=== PATIENT | female | born 1970 | race Two or more races ===

== ENCOUNTER 2018-08-27 | Emergency (ER) | payer OTHER ==
[~2018-08-27] VITALS: Ht 154.9 cm; Wt 59.0 kg
--- NOTE | 2018-08-27 00:05 | NUR ---
TO BED 3 AMBULATORY STATES "I THINK I'M HAVING AN ALLERGIC REACTION". NO HIVES, NO ANGIOEDEMA NOTED. PT AAOX4 NO ACUTE DISTRESS NOTED, RESP EVEN AND UNLABORED. LUNG SOUNDS CLEAR BILATERALLY ON AUSCULTATION. PLACE PT ON CARDIAC MONITORING, CONTINUOUS POX, O2@2L/NC. ER MD AT BEDSIDE TO EVAL PT WITH ORDERS RECEIVED. WILL CARRY OUT ORDERS.
[2018-08-27] MEDS ORDERED: FAMOTIDINE/PF INJ 20 MG/2 ML VIAL IV ONE ×2 (00:10→00:30)
[2018-08-27] MEDS ORDERED: diphenhydrAMINE HCL 50 MG/ML VIAL ONE (00:10)
[2018-08-27] MEDS ORDERED: methylPREDNISolone SOD SUCC 125 MG/2ML VIAL ONE (00:26)
--- NOTE | 2018-08-27 00:27 | NUR ---
PT RESTING QUIETLY, NO ACUTE DISTRESS NOTED, RESP EVEN AND UNLABORED. WILL CONTINUE TO MONITOR PT CLOSELY.
[2018-08-27] MEDS ORDERED: methylPREDNISolone SOD SUCC 125 MG/2ML VIAL IV ONE (00:30)
[2018-08-27] MEDS ORDERED: diphenhydrAMINE HCL 50 MG/ML VIAL IV ONE (00:30)
[2018-08-27] MEDS ORDERED: IV NS 0.9% 1,000 ML BAG IV ONE ×2 (00:30→02:30)
--- NOTE | 2018-08-27 02:08 | NUR ---
PT ASLEEP, NO ACUTE DISTRESS NOTED, RESP EVEN AND UNLABORED. CALL LIGHT WITHIN REACH. WILL CONTINUE TO MONITOR PT CLOSELY.
[2018-08-27] MEDS ORDERED: ONDANSETRON HCL/PF 4 MG/2 ML VIAL IV ONE (02:30)
--- NOTE | 2018-08-27 03:36 | NUR ---
PT ASLEEP, NO ACUTE DISTRESS NOTED, RESP EVEN AND UNLABORED. CALL LIGHT WITHIN REACH. WILL CONTINUE TO MONITOR PT CLOSELY.
--- NOTE | 2018-08-27 05:01 | NUR ---
PT AAOX4 NO ACUTE DISTRESS NOTED, RESP EVEN AND UNLABORED. PT DENIES PAIN OR DISCOMFORT AT THIS TIME. WILL DISCHARGE PT.
[2018-08-27 05:04] VITALS: BP 117/72
--- NOTE | 2018-08-27 05:14 | NUR ---
IV removed. Catheter intact and site benign. Pressure and 4x4 applied to site. No bleeding noted. Patient discharged to home in stable condition. Written and verbal after care instructions given. Patient verbalizes understanding of instruction. ambulatory with a steady gait noted.
== END 2018-08-27 05:15 | disposition home or self-care (01) ==
LOC: ER
DX: T78.40XA Allergy, unspecified, initial encounter (principal); E86.0 Dehydration; F10.10 Alcohol abuse, uncomplicated; Z98.890 Other specified postprocedural states; X58.XXXA Exposure to other specified factors, initial encounter; Y90.9 Presence of alcohol in blood, level not specified
CPT/HCPCS: 96361; 96374; 96375; 99283; J1200; J2930; J3490; J7030 ×2

== ENCOUNTER 2023-10-22 12:38 | Emergency (ER) | payer OTHER ==
[~2023-10-22] VITALS: Ht 149.9 cm; Wt 49.9 kg
[2023-10-22] MEDS ORDERED: HYDROCODONE/APAP 5/325MG TABLET ONE (13:27)
[2023-10-22] MEDS ORDERED: IBUPROFEN 600 MG TABLET ONE (13:27)
[2023-10-22] MEDS: IBUPROFEN 600 MG TABLET PO ONE (13:30)
[2023-10-22] MEDS: HYDROCODONE/APAP 5/325MG TABLET PO ONE (13:31)
[2023-10-22] MEDS ORDERED: DIVALPROEX SODIUM 250 MG TABLET.DR PO ONE (14:30)
[2023-10-22] MEDS: DIVALPROEX SODIUM 250 MG TABLET.DR PO ONE (14:31)
[2023-10-22] MEDS ORDERED: IBUP-1955 PO (14:58)
[2023-10-22] MEDS ORDERED: HYDR-4209 PO (14:58)
[2023-10-22] MEDS ORDERED: ACET-2605 PO (14:58)
[2023-10-22] MEDS ORDERED: DOCU-141 PO (15:02)
[2023-10-22 15:11] VITALS: BP 110/70; TEMP 98.4; O2SAT 98
[2023-10-22] MEDS ORDERED: HYDR-3980 PO (17:08)
== END 2023-10-22 15:34 | disposition home or self-care (01) ==
LOC: ER 13:00
DX: S82.144A Nondisplaced bicondylar fracture of right tibia, initial encounter for closed fracture (principal); W52.XXXA Crushed, pushed or stepped on by crowd or human stampede, initial encounter; Y93.89 Activity, other specified; Y92.89 Other specified places as the place of occurrence of the external cause; Y99.8 Other external cause status
CPT/HCPCS: 73564-TC

== ENCOUNTER 2023-12-14 12:21 | Emergency (ER) | payer OTHER ==
[~2023-12-14] VITALS: Ht 149.9 cm; Wt 49.9 kg
[~2023-12-14 12:21] MED LIST: ACET-2605 PO; DOCU-141 PO; HYDR-3980 PO; IBUP-1955 PO
[2023-12-14 13:26] LABS: APPEARANCE,URINE CLEAR (CLEAR); BILIRUBIN,URINE NEGATIVE (NEGATIVE); BLOOD, URINE NEGATIVE Ery/uL (NEGATIVE); COLOR,URINE YELLOW (YELLOW); KETONES,URINE NEGATIVE (NEGATIVE); LEUKOCYTE ESTERASE ,URINE NEGATIVE (NEGATIVE); NITRITE, URINE NEGATIVE (NEGATIVE); PROTEIN,URINE NEGATIVE (NEGATIVE); UGLUCOSE NEGATIVE (NEGATIVE); UROBILINOGEN,URINE 0.2 EU/dL (0.2)
[2023-12-14] MEDS ORDERED: diphenhydrAMINE HCL 50 MG/ML VIAL ONE (13:30)
[2023-12-14] MEDS ORDERED: HALOPERIDOL LACTATE INJ 5 MG/ML VIAL ONE (13:31)
[2023-12-14] MEDS: diphenhydrAMINE HCL 50 MG/ML VIAL IM ONE (13:34)
[2023-12-14] MEDS: HALOPERIDOL LACTATE INJ 5 MG/ML VIAL IM ONE (13:35)
[2023-12-14 13:57] LABS: AMPHETAMINE, URINE NEGATIVE (NEGATIVE); BARBITURATE, URINE NEGATIVE (NEGATIVE); BENZODIAZEPINE, URINE NEGATIVE (NEGATIVE); COCCAINE, URINE NEGATIVE (NEGATIVE); OPIATE, URINE NEGATIVE (NEGATIVE); PHENCYCLIDINE SCREEN,URINE NEGATIVE (NEGATIVE)
[2023-12-14 13:58] LABS: CANNABINOID, URINE POSITIVE (NEGATIVE)
[2023-12-14] MEDS ORDERED: LORAZEPAM INJ 2 MG/ML VIAL IM ONE (14:00)
[2023-12-14] MEDS ORDERED: LORAZEPAM INJ 2 MG/ML VIAL ONE (14:18)
[2023-12-14] MEDS: LORAZEPAM INJ 2 MG/ML VIAL IM ONE (14:20)
[2023-12-14 15:09] LABS: BASOPHILS % (AUTO) 1.1 % (0.0-2.0); EOSINOPHILS % (AUTO) 1.7 % (0.0-6.0); HEMATOCRIT 38 % (33-45); HEMOGLOBIN 11.9 g/dL (11.5-14.8); LYMPHOCYTES # (AUTO) 1.2 K/uL (0.8-4.8); LYMPHOCYTES % (AUTO) 53.4 % (20.0-44.0); MEAN CORPUSCULAR HEMOGLOBIN 24 PG (26.0-33.0); MEAN CORPUSCULAR HGB CONC 32 g/dl (31.0-36.0); MEAN CORPUSCULAR VOLUME 76 fL (82-100); MONOCYTES # (AUTO) 0.2 K/uL (0.1-1.30); NEUTROPHILS # (AUTO) 0.8 K/uL (1.8-8.9); NEUTROPHILS % (AUTO) 34.8 % (43.0-81.0); PLATELET COUNT (AUTO) 207 K/uL (150-450); RED BLOOD CELL COUNT(AUTO) 4.95 MIL/uL (4.0-5.2); RED CELL DISTRIBUTION WIDTH 18.2 % (11.5-15.0); WHITE BLOOD COUNT (AUTO) 2.2 K/uL (4.3-11.0)
[2023-12-14 15:34] LABS: ALANINE AMINOTRANSFERASE 19 U/L (12-78); ALBUMIN 3.7 g/dL (3.4-5.0); ALKALINE PHOSPHATASE 53 U/L (46-116); ASPARTATE AMINOTRANSFERASE 12 U/L (15-37); BILIRUBIN,DIRECT 0.1 mg/dL (0.0-0.2); BILIRUBIN,TOTAL 0.6 mg/dL (0.2-1.0); CALCIUM, SERUM 8.7 mg/dL (8.5-10.1); CARBON DIOXIDE 29 mmol/L (21-32); CHLORIDE 112 mmol/L (98-107); CREATININE 0.7 mg/dL (0.6-1.3); GLUCOSE 80 mg/dL (74-106); POTASSIUM 3.8 mmol/L (3.5-5.1); SALICYLATE 4.9 mg/dL (2.8-20.0); SODIUM SERUM 151 mmol/L (136-145); TOTAL PROTEIN, SERUM 7.6 g/dL (6.4-8.2); UREA NITROGEN, BLOOD 8 mg/dL (7-18)
[2023-12-14 15:39] LABS: ACETAMINOPHEN <10 ug/ml (10-30)
[2023-12-14 15:48] LABS: ALCOHOL, BLOOD 178 mg/dL (0-10)
[2023-12-14] MEDS: NEOMY SULF/BACITRAC ZN/POLY 15 GM TUBE TP SCH (17:30)
[2023-12-14 20:32] LABS: EOSINOPHILS % (MANUAL) 4 % (0-4); LYMPHOCYTES % (MANUAL) 50 % (16-48); MONOCYTES % (MANUAL) 8 % (0-11.0); NEUTROPHILS % (MANUAL) 38 (42-76); PLATELET ESTIMATE ADEQUATE
[2023-12-14 20:33] LABS: ANISOCYTOSIS 1+; OVALOCYTES 1+; TEAR DROP CELLS 1+
[2023-12-14 22:33] VITALS: BP 120/76; TEMP 98.5; O2SAT 95
== END 2023-12-14 22:25 | disposition home or self-care (01) ==
LOC: ER 12:21
DX: S81.011A Laceration without foreign body, right knee, initial encounter (principal); R45.6 Violent behavior; R45.1 Restlessness and agitation; D70.9 Neutropenia, unspecified; F31.9 Bipolar disorder, unspecified; F17.200 Nicotine dependence, unspecified, uncomplicated; Z20.822 Contact with and (suspected) exposure to COVID-19; W18.39XA Other fall on same level, initial encounter; Y93.89 Activity, other specified; Y92.89 Other specified places as the place of occurrence of the external cause; Y99.8 Other external cause status
CPT/HCPCS: 12001; 36415; 73564; 73590; 80048; 80076; 80143; 80307; 80320; 81003; 85007; 85025; 87426; 96372; 99285; A6403; J1200; J1630; J2060; G0480